=== PATIENT | male | born 1965 | race Caucasian/White ===

== ENCOUNTER 2020-11-27 17:40 | Emergency (ER) | payer BC ==
[2020-11-27 18:12] VITALS: BP 153/101; PULSE 91; TEMP 98.1; BMI 28.1
[2020-11-27] MEDS ORDERED: DIPHTH,PERTUSS(ACELL),TET 0.5 ML DISP.SYRIN IM ONE (18:49)
[2020-11-27] MEDS ORDERED: LIDOCAINE HCL 1% PRESERVATIVE FREE - 30ML VIAL INF ONE (19:07)
[2020-11-27] MEDS ORDERED: LIDOCAINE HCL 1%, 10 MG/ML (20ML VIAL) ONE (19:08)
== END 2020-11-27 19:48 | disposition home or self-care (01) ==
LOC: JER 17:40 → JERFT 17:40
PROC: 0HQGXZZ Repair Left Hand Skin, External Approach (ICD-10-PCS; principal; 2020-11-27)
PROC: 3E0234Z Introduction of Serum, Toxoid and Vaccine into Muscle, Percutaneous Approach (ICD-10-PCS; 2020-11-27)
DX: S61.412A Laceration without foreign body of left hand, initial encounter (principal)
CPT/HCPCS: 90715; 99285-25